=== PATIENT | female | born 1975 | race American Indian/Alaskan Native ===

== ENCOUNTER 2018-12-28 15:12 | Outpatient (CLI) | payer MEDICAID ==
--- NOTE | 2018-12-28 17:35 | XRay Report ---
Lumbar spine with obliques, 5 views INDICATION: Back pain following fall FINDINGS: The vertebral body heights and disc spaces are intact. No fracture or spondylolisthesis. No spurring is seen. Oblique views show no facet arthropathy or spondylolysis. SI joints are grossly in tact. No significant abnormality. IMPRESSION: Negative lumbar spine with obliques Signer Name: Sj Fuentes MD Signed: 12/28/2018 5:30 PM Workstation Name: [id number]
--- NOTE | 2018-12-28 17:36 | XRay Report ---
Bilateral knees, 2 views INDICATION: Bilateral knee pain FINDINGS: There is only minimal narrowing of both medial compartments with lateral compartment is int act. Signer Name: Sj Fuentes MD Signed: 12/28/2018 5:31 PM Workstation Name: [id number]
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
--- NOTE | 2018-12-28 20:11 | XRay Report ---
BILATERAL FEET 6 VIEWS INDICATION / CLINICAL INFORMATION: PAIN. COMPARISON: None available. FINDINGS: Surgical pins are present in the first metatarsal of both feet. There is mild deformity of the left f irst metatarsal, probably due to old trauma.. No fracture or other acute abnormality. Signer Name: Xu Salvador MD Signed: 12/28/2018 8:07 PM Workstation Name: [email or web address]
== END 2018-12-28 15:13 | disposition home or self-care (01) ==
LOC: XRAY 15:12
PROVIDERS: ATTEND Orthopaedic Surgery
DX: M54.2 Cervicalgia (principal); M17.0 Bilateral primary osteoarthritis of knee; M54.5 Low back pain; M79.672 Pain in left foot; M79.671 Pain in right foot; I10 Essential (primary) hypertension; J45.909 Unspecified asthma, uncomplicated; K21.9 Gastro-esophageal reflux disease without esophagitis; M19.90 Unspecified osteoarthritis, unspecified site; Z98.51 Tubal ligation status; Z86.718 Personal history of other venous thrombosis and embolism
CPT/HCPCS: 72050; 72110; 73565

== ENCOUNTER 2019-02-03 12:01 | Outpatient (CLI) | payer MEDICAID ==
[2019-02-03 12:36] LABS: Basophils # (Auto) 0.1 K/mm3 (0.0-0.1); Basophils % (Auto) 1.1 % (0.0-1.8); Eosinophils # (Auto) 0.1 K/mm3 (0.0-0.4); Eosinophils % (Auto) 0.8 % (0.0-4.3); Hematocrit 38.5 % (30.3-42.9); Hemoglobin 12.8 gm/dl (10.1-14.3); Lymphocytes # (Auto) 2.5 K/mm3 (1.2-5.4); Lymphocytes % (Auto) 27.6 % (13.4-35.0); Mean Corpuscular HGB Conc 33 % (30-34); Mean Corpuscular Volume 90 fl (79-97); Monocytes # (Auto) 0.5 K/mm3 (0.0-0.8); Monocytes % (Auto) 5.5 % (0.0-7.3); Platelet Count 332 K/mm3 (140-440); Red Blood Count 4.28 M/mm3 (3.65-5.03)
[2019-02-03 12:52] LABS: Alanine Aminotransferase 21 units/L (7-56); Albumin 3.9 g/dL (3.9-5); BUN/Creatinine Ratio 23; Blood Urea Nitrogen 14 mg/dL (7-17); Calcium 9.6 mg/dL (8.4-10.2); Chol/HDL Ratio 2.71 %; HDL Cholesterol 46 mg/dL (40-59); Hemolysis Index 49; LDL Cholesterol,Direct 76 mg/dL (50-130)
== END 2019-02-03 12:02 | disposition home or self-care (01) ==
LOC: LAB 12:01
PROVIDERS: ATTEND Surgery
DX: Z01.812 Encounter for preprocedural laboratory examination (principal); E11.9 Type 2 diabetes mellitus without complications; K30 Functional dyspepsia
CPT/HCPCS: 36415; 80053; 80061; 82607; 83036; 84443; 85025